=== PATIENT | female | born 1990 | race Caucasian/White ===

== ENCOUNTER 2018-08-27 21:53 | Emergency (ER) | payer MEDICAID, OTHER ==
[~2018-08-27] VITALS: Ht 162.6 cm; Wt 88.6 kg
[~2018-08-27 21:53] MED LIST: ALBU8.5H8 IH
[2018-08-28] MEDS ORDERED: ONDANSETRON HCL 4 MG TABLET PO ONE (02:30)
[2018-08-28] MEDS ORDERED: HYDROCODONE/ACETAMINOPHEN 5-325 MG TABLET PO ONE (02:30)
[2018-08-28] MEDS ORDERED: CEPHALEXIN MONOHYDRATE 500 MG CAPSULE PO ONE (02:30)
[2018-08-28] MEDS ORDERED: NAPROXEN 250 MG TABLET PO ONE (02:30)
[2018-08-28 03:25] VITALS: BP 130/84
== END 2018-08-28 04:25 | disposition home or self-care (01) ==
LOC: EMS 21:54
DX: S31.159A Open bite of abdominal wall, unspecified quadrant without penetration into peritoneal cavity, initial encounter (principal); S31.050A Open bite of lower back and pelvis without penetration into retroperitoneum, initial encounter; S20.212A Contusion of left front wall of thorax, initial encounter; S80.02XA Contusion of left knee, initial encounter; J45.909 Unspecified asthma, uncomplicated; F12.90 Cannabis use, unspecified, uncomplicated; F17.210 Nicotine dependence, cigarettes, uncomplicated; Z88.5 Allergy status to narcotic agent; Z88.6 Allergy status to analgesic agent; Z91.030 Bee allergy status; W54.0XXA Bitten by dog, initial encounter; Y93.89 Activity, other specified; Y92.89 Other specified places as the place of occurrence of the external cause; Y99.8 Other external cause status
CPT/HCPCS: 71046; 72040; 81025; 99284; Q0162